=== PATIENT | male | born 1975 | race Caucasian/White ===

== ENCOUNTER 2018-08-21 11:16 | Emergency (ER) | payer OTHER ==
[~2018-08-21] VITALS: Ht 172.7 cm; Wt 100.8 kg
[2018-08-21] MEDS ORDERED: PRED10TA2 PO (11:32)
[2018-08-21] MEDS ORDERED: IBUP1TAB7 PO (11:32)
[2018-08-21] MEDS ORDERED: CYCL10TA PO (11:32)
[2018-08-21] MEDS ORDERED: NAPR-885 PO (11:32)
[2018-08-21] MEDS ORDERED: KETOROLAC 60 MG/2 ML VIAL (J1885) IM ONE (12:00)
[2018-08-21] MEDS ORDERED: ACETAMINOPHEN 325 MG TAB PO ONE (12:00)
[2018-08-21] MEDS ORDERED: MORPHINE 4 MG/ML 1ML VIAL/SYRINGE (J2270) IV ONE (12:45)
[2018-08-21] MEDS ORDERED: NS 1,000 ML IV ONE (12:45)
[2018-08-21 12:47] VITALS: BP 137/78
== END 2018-08-21 12:49 | disposition home or self-care (01) ==
LOC: M ED 11:16
DX: M54.41 Lumbago with sciatica, right side (principal); Z79.899 Other long term (current) drug therapy
CPT/HCPCS: 96372; 99283; J1885

== ENCOUNTER 2018-10-14 23:43 | Emergency (ER) | payer OTHER ==
[~2018-10-14] VITALS: Ht 172.7 cm; Wt 95.5 kg
[~2018-10-14 23:43] MED LIST: CYCL10TA PO; IBUP1TAB7 PO; NAPR-885 PO; PRED10TA2 PO
[2018-10-14 23:44] VITALS: BP 176/90
== END 2018-10-15 02:56 | disposition left against medical advice (07) ==
LOC: M ED 23:43
DX: Z53.21 Procedure and treatment not carried out due to patient leaving prior to being seen by health care provider (principal)